=== PATIENT | female | born 1945 | race Caucasian/White ===

== ENCOUNTER → 2017-05-29 | Outpatient (CLI) | payer OTHER ==
[~2017-05-29] MED LIST: ADVAIR HFA 230M12 GM INH; ADVAIR HFA115 MCG/21; GLUCOPHAGE500 MG PO; LEVAQUIN 500 M500 M2 PO; LOVASTATIN 20 M20 MG PO; METFORMIN HCL500 MG PO; NICOTINE TRANSD21 M1 TRANSDERM; PREDNISONE 10 M10 MG PO; VENTOLIN HFA 1818 GM INH
== END ==
LOC: M.RAD 15:33
DX: M47.896 Other spondylosis, lumbar region (principal)